=== PATIENT | male | born 1985 | race African-American/Black ===

== ENCOUNTER 2020-01-28 04:37 | Emergency (ER) | payer SELFPAY ==
[~2020-01-28] VITALS: Ht 170.2 cm; Wt 85.8 kg
[2020-01-28] MEDS ORDERED: CEFTRIAXONE 250 MG ONE (05:13)
[2020-01-28] MEDS ORDERED: AZITHROMYCIN 500 MG TABLET ONE (05:13)
[2020-01-28] MEDS ORDERED: OXYcodone/APAP 5/325MG TABLET ONE (05:13)
[2020-01-28] MEDS ORDERED: CEFTRIAXONE 250 MG IM ONE (05:30)
[2020-01-28] MEDS ORDERED: OXYcodone/APAP 5/325MG TABLET PO ONE (05:30)
[2020-01-28] MEDS ORDERED: AZITHROMYCIN 500 MG TABLET PO ONE (05:30)
[2020-01-28 05:48] LABS: BASOPHILS # (AUTO) 0.03 x10^3/uL (0-0.1); BASOPHILS % (AUTO) 0 % (0-1); EOSINOPHILS # (AUTO) 0.06 x10^3/uL (0-0.4); EOSINOPHILS % (AUTO) 1 % (1-7); LYMPHOCYTES # (AUTO) 1.78 x10^3/uL (1-3.4); LYMPHOCYTES % (AUTO) 19 % (22-44); MD NO; MEAN CORPUSCULAR HEMOGLOBIN 29.3 pg (27.5-34.5); MEAN CORPUSCULAR HGB CONC 33.8 g/dL (33.2-36.2); MEAN CORPUSCULAR VOLUME 86.6 fL (81-97); MEAN PLATELET VOLUME 9.4 fL (7.4-10.4); MONOCYTES # (AUTO) 0.75 x10^3/uL (0.2-0.8); MONOCYTES % (AUTO) 8 % (2-9); NEUTROPHILS % (AUTO) 72 % (42-75); PLATELET COUNT 201 x10^3/uL (130-400); RED BLOOD COUNT 5.12 x10^6/uL (4.38-5.82); RED CELL DISTRIBUTION WIDTH 15.9 % (9.4-14.8)
[2020-01-28 05:58] LABS: ALBUMIN 3.7 g/dL (3.4-5.0); ANION GAP 5 mmol/L (5-15); CALCIUM 9.3 mg/dL (8.5-10.1); CHLORIDE 105 mmol/L (98-107); CREATININE 1.52 mg/dL (0.7-1.3)
[2020-01-28 07:35] VITALS: BP 165/106
--- NOTE | 2020-01-28 07:40 | NUR ---
Patient/Caregiver given discharge instructions and they have confirmed that they understand the instructions. Patient ambulatory with steady gait.
== END 2020-01-28 08:50 | disposition home or self-care (01) ==
LOC: ED 07:53
DX: A56.01 Chlamydial cystitis and urethritis (principal); A54.01 Gonococcal cystitis and urethritis, unspecified; N45.1 Epididymitis; I10 Essential (primary) hypertension; Z88.1 Allergy status to other antibiotic agents
CPT/HCPCS: 36415; 76870; 80048; 82040; 85025; 87491; 87591; 96372; 99284; J0696